=== PATIENT | male | born 1975 ===

== ENCOUNTER 2022-01-17 10:56 | Emergency (ER) | payer SELFPAY ==
[~2022-01-17] VITALS: Ht 160 cm; Wt 81.8 kg
[2022-01-17 11:01] VITALS: BP 143/96
== END 2022-01-17 18:43 | disposition left against medical advice (07) ==
LOC: ER 10:57
DX: R42 Dizziness and giddiness (principal); R51.9 Headache, unspecified; Z53.21 Procedure and treatment not carried out due to patient leaving prior to being seen by health care provider